=== PATIENT | male | born 1975 | race Caucasian/White ===

== ENCOUNTER 2019-10-31 20:27 | Emergency (ER) | payer BC, MEDICAID ==
[~2019-10-31] VITALS: Ht 175.3 cm; Wt 104.3 kg
[2019-10-31 20:55] VITALS: BP 135/85
--- NOTE | 2019-10-31 20:55 | NUR ---
44 y/o male presents to ED with C/O severe COOLEY and CP when coughing x3 days. Cogh is non-productive. Afebrile with vss. Bilat upper lobe wheezing heard. No respiratory distress. RR even and regular. ER MD aware. Continue to monitor.
--- NOTE | 2019-10-31 20:55 | NUR ---
PT ambulated to [facility].
[2019-10-31] MEDS ORDERED: ALBUTEROL 0.083% 2.5 MG/3 ML NEBU INH ONE (21:00)
[2019-10-31] MEDS ORDERED: predniSONE 20 MG TAB PO ONE (21:00)
[2019-10-31 21:45] VITALS: BP 132/88
--- NOTE | 2019-10-31 21:45 | NUR ---
Patient discharged with v/s stable. Lungs clear bilat with minimal wheezing. Pt states relief. No respiratory distress. Written and verbal after care instructions given and explained. Patient alert, oriented and verbalized understanding of instructions. Ambulatory with steady gait. All questions addressed prior to discharge. ID band removed. Patient advised to follow up with PMD and when to retunr to ER. Rx of Medrol Dose Pack, Prmoethazine, and Ventolin given. Patient educated on indication of medication including possible reaction and side effects. Opportunity to ask questions provided and answered.
== END 2019-10-31 21:45 | disposition home or self-care (01) ==
LOC: MED 20:27
DX: J20.9 Acute bronchitis, unspecified (principal)
CPT/HCPCS: 71045; 99283; J7512; J7613; 94640

== ENCOUNTER 2020-04-23 21:10 | Emergency (ER) | payer BC, MEDICAID ==
[~2020-04-23] VITALS: Ht 167.6 cm; Wt 106.6 kg
--- NOTE | 2020-04-23 21:24 | NUR ---
pt ambulated to bed 11 with steady gait.
--- NOTE | 2020-04-23 21:24 | NUR ---
44 year old male complains of on/off nonradiating chest pain x 8 hours. Pt states that he currently has no pain and that it went away, but it was bothering him prior to arrival. Pt also complains of some shortness of breathe, RR 18, spo2 96%, lungs clear bilaterally. Pt aox4, breathing even and unlabored, skin warm and dry. bed in lowest position, locked, bed rail upx1. Translation for yi used. pmh - denies allergies - nka
[2020-04-23 21:25] VITALS: BP 137/88
--- NOTE | 2020-04-23 21:35 | NUR ---
Dr. An examining patient.
[2020-04-23] MEDS ORDERED: KETOROLAC 60 MG/2 ML VIAL IM ONE (21:40)
[2020-04-23] MEDS ORDERED: ASPIRIN 81 MG TAB.CHEW PO ONE (21:40)
--- NOTE | 2020-04-23 21:40 | NUR ---
X-Ray at bedside.
--- NOTE | 2020-04-23 21:47 | NUR ---
pt medicated with toradol IM and ASA 81 po. tolerated well nadr
[2020-04-23 22:46] VITALS: BP 137/88
== END 2020-04-23 22:46 | disposition home or self-care (01) ==
LOC: MED 21:10
DX: R07.9 Chest pain, unspecified (principal)
CPT/HCPCS: 71045; 93005; 96372; 99283; J1885